=== PATIENT | female | born 1975 | race American Indian/Alaskan Native ===

== ENCOUNTER 2018-03-02 21:15 | Emergency (ER) | payer BC ==
[2018-03-03 03:55] VITALS: BP 135/93
--- NOTE | 2018-03-03 04:02 | XRay Report ---
FINAL REPORT PROCEDURE: XR NECK SOFT TISSUE TECHNIQUE: Soft tissue neck radiographs, 2 views, including AP and lateral. CPT 27006 HISTORY: feels like a lump in her throat after she had eate COMPARISON: No prior studies are available for comparison. FINDINGS: Bone mineralization: Normal. Alignment: Normal. Soft tissues: Epiglottis and hypopharyngeal soft tissues normal. Foreign bodies: None. IMPRESSION: Normal Examination.
--- NOTE | 2018-03-03 04:27 | Emergency Department Report ---
ED ENT HPI - General Chief complaint: Sore Throat Stated complaint: THROAT PAIN Time Seen by Provider: 03/03/18 02:47 Source: patient Mode of arrival: Ambulatory Limitations: No Limitations - History of Present Illness Initial comments: 42-year-old -[place] female comes in reporting that she is having throat pain. Patient reports that she went to [facility] for house and had breakfast her usual order a different location and notice immediately that she started having a feeling of a lump in her throat. Patient reports that she was then able to hold down fluids and water but has not tried to eat anything. Patient has not taken anything for pain. She denies any fever chills no runny nose or nasal congestion no sneezing. Has no past medical history currently takes no medications on a daily basis. She has an allergy to Benadryl and hydrocodone. MD complaint: sore throat -: This afternoon Location: throat Severity scale (0 -10): 0 Quality: other (feels like symptoms in her throat) Worsens with: swallowing - Related Data Allergies Allergy/AdvReac Type Severity Reaction Status Date / Time diphenhydramine HCl Allergy Swelling Unverified 02/21/16 07:09 [From Benadryl] hydrocodone Allergy Itching Unverified 02/21/16 07:08 ED Dental HPI - General Chief complaint: Sore Throat Stated complaint: THROAT PAIN Time Seen by Provider: 03/03/18 02:47 Source: patient Mode of arrival: Ambulatory Limitations: No Limitations - Related Data Allergies Allergy/AdvReac Type Severity Reaction Status Date / Time diphenhydramine HCl Allergy Swelling Unverified 02/21/16 07:09 [From Benadryl] hydrocodone Allergy Itching Unverified 02/21/16 07:08 ED Review of Systems ROS: Stated complaint: THROAT PAIN Other details as noted in HPI ED Past Medical Hx - Past Medical History Previous Medical History?: Yes Hx Hypertension: Yes Hx Arthritis: Yes - Surgical History Past Surgical History?: Yes Additional Surgical History: tubaligation, sinus, fibroid, throid nodule - Social History Smoking Status: Never Smoker Substance Use Type: Alcohol ED Physical Exam - General Limitations: No Limitations General appearance: alert, in no apparent distress - Head Head exam: Present: atraumatic, normocephalic - Eye Eye exam: Present: EOMI - Expanded ENT Exam Expanded Throat exam: Negative: tonsillar erythema, tonsillomegaly, tonsillar exudate - Neck Neck exam: Present: full ROM. Absent: tenderness, lymphadenopathy, thyromegaly - Respiratory Respiratory exam: Present: normal lung sounds bilaterally. Absent: respiratory distress - Cardiovascular Cardiovascular Exam: Present: regular rate, normal rhythm. Absent: systolic murmur, diastolic murmur, rubs, gallop - Neurological Exam Neurological exam: Present: alert, oriented X3 - Psychiatric Psychiatric exam: Present: normal affect, normal mood ED Course Vital Signs 03/02/18 03/03/18 21:23 03:54 Temperature 98.2 F Pulse Rate 100 H 76 Respiratory 18 Rate Blood Pressure 142/108 Blood Pressure 135/93 [Left] O2 Sat by Pulse 100 98 Oximetry ED Medical Decision Making - Radiology Data Soft tissue neck shows normal examination. - Medical Decision Making Patient has been evaluated by this provider fast track. Soft tissue neck x-ray performed shows normal examination Discussed patient that his symptoms persist she needs to follow-up with her primary care provider or ear nose and throat provider. Patient did report that now is starting to feel scratchy which she thinks it may be due to allergies. I discussed the patient she could have irritation from postnasal drip. Patient verbalized understanding Critical care attestation.: If time is entered above; I have spent that time in minutes in the direct care of this critically ill patient, excluding procedure time. ED Disposition Clinical Impression: Irritated throat Disposition: DC-01 TO HOME OR SELFCARE Is pt being admited?: No Does the pt Need Aspirin: No Condition: Stable Instructions: Menthol (By mouth) Additional Instructions: Please try sucking on throat lozenges. If her sore throat persist started having swelling pain or redness to follow up with her primary care provider whether emergency room for further evaluation. Referrals: PRIMARY CARE, [Primary Care Provider] - 3-5 Days [facility] [Provider Group] - 3-5 Days Forms: Work/School Release Form(ED)
== END 2018-03-03 04:41 | disposition home or self-care (01) ==
LOC: ED 21:15
DX: J39.2 Other diseases of pharynx (principal); I10 Essential (primary) hypertension; M19.90 Unspecified osteoarthritis, unspecified site; Z98.51 Tubal ligation status; Z88.1 Allergy status to other antibiotic agents; Z88.4 Allergy status to anesthetic agent
CPT/HCPCS: 70360; 99283

== ENCOUNTER 2018-07-01 08:44 | Outpatient (CLI) | payer BC ==
--- NOTE | 2018-07-01 09:58 | Ultrasound Report ---
RIGHT DIGITAL DIAGNOSTIC MAMMOGRAM and RIGHT BREAST ULTRASOUND: 07/01/18 08:44:00 CLINICAL: Recalled for asymmetry. COMPARISON:05/20/18 screening FINDINGS: Lateralmedial, rolled CC and spot compression CC views were performed. Asymmetry persists on the spot view. Ultrasound of the outer right breast was performed and demonstrated a cluster of benign cysts at 1 o'clock 12 cm from the nipple. It correlates with the mammographic density and measures 5 x 4 x 4 mm. IMPRESSION: Benign clustered cysts at 1 o'clock right breast. BI-RADS CATEGORY: 2 - - Benign RECOMMENDATION: Return to routine mammographic screening. ACR BI-RADS MAMMOGRAPHIC CODES: 0 = Needs additional imaging evaluation; 1 = Negative; 2 = Benign; 3 = Probably benign; 4 = Suspicious; 5 = Malignant; 6 = Known biopsy-proven malignancy COMMENT: 1. Dense breast tissue, i.e., adenosis, fibrocystic changes, etc., may obscure an underlying neoplasm. 2. Approximately 10% of cancers are not detected with mammography. 3. A negative mammography report should not delay biopsy if a clinically suspicious mass is present. COMMENT: Patient follow-up letters are generated via our [employer] application.
== END 2018-07-01 08:45 | disposition home or self-care (01) ==
LOC: MAMMO 08:44
PROVIDERS: ATTEND Family Medicine Adult Medicine
DX: N60.01 Solitary cyst of right breast (principal); I10 Essential (primary) hypertension; M19.90 Unspecified osteoarthritis, unspecified site

== ENCOUNTER 2019-07-21 07:09 | Outpatient (CLI) | payer BC ==
--- NOTE | 2019-07-24 09:05 | Mammography Report ---
DIGITAL SCREENING MAMMOGRAM WITH CAD, 07/21/2019 INDICATION: Routine screening mammography. TECHNIQUE: Digital bilateral 2D mammography was obtained in the craniocaudal and mediolateral obliq ue projections. This examination was interpreted with the benefit of Computer-Aided Detection analysi s. COMPARISON: 05/20/2018 and 07/01/2018 FINDINGS: Breast Density: The right breast is heterogeneously dense, which may obscure small masses in the left breast is smaller and mostly fatty. There is no evidence of dominant mass, suspicious calcifications or architectural distortion in eithe r breast. IMPRESSION: No mammographic evidence of malignancy. Follow up recommendation: Routine yearly BI-RADS Category 2: Benign. A "normal" or negative report should not discourage follow up or biopsy of a clinically significant f inding. A written summary of these findings will be mailed to the patient. The patient will be entered into a mammography reporting system which will generate a reminder letter for the patient's next appointmen t at the appropriate interval. The [employer] recommends yearly mammograms starting at age 40 and continuing as l nimco as a woman is in good health. Breast MRI is recommended for women with an approximate 20-25% or greater lifetime risk of breast cancer, including women with a strong family history of breast or ova lobo cancer or who have been treated for Hodgkin's disease. Signer Name: Jose Reddy MD Signed: 07/24/2019 9:01 AM Workstation Name: [id number]
== END 2019-07-21 07:10 | disposition home or self-care (01) ==
LOC: MAMMO 07:09
PROVIDERS: ATTEND Family Medicine Adult Medicine
DX: Z12.31 Encounter for screening mammogram for malignant neoplasm of breast (principal)
CPT/HCPCS: 77067

== ENCOUNTER 2020-09-13 06:52 | Outpatient (CLI) | payer BC ==
--- NOTE | 2020-09-13 09:18 | Mammography Report ---
DIGITAL SCREENING MAMMOGRAM WITH CAD, 09/13/2020 INDICATION: Routine screening mammography. TECHNIQUE: Digital bilateral 2D mammography was obtained in the craniocaudal and mediolateral obliq ue projections. This examination was interpreted with the benefit of Computer-Aided Detection analysi s. COMPARISON: 07/21/2019, 05/20/2018. FINDINGS: Breast Density: There are scattered areas of fibroglandular density. There is no evidence of dominant mass, suspicious calcifications or architectural distortion in eithe r breast. IMPRESSION: Follow up recommendation: Routine yearly BI-RADS Category 1: Negative. A "normal" or negative report should not discourage follow up or biopsy of a clinically significant f inding. A written summary of these findings will be mailed to the patient. The patient will be entered into a mammography reporting system which will generate a reminder letter for the patient's next appointmen t at the appropriate interval. The [employer] recommends yearly mammograms starting at age 40 and continuing as l nimco as a woman is in good health. Breast MRI is recommended for women with an approximate 20-25% or greater lifetime risk of breast cancer, including women with a strong family history of breast or ova lobo cancer or who have been treated for Hodgkin's disease. Signer Name: Faustino White MD Signed: 09/13/2020 9:13 AM Workstation Name: [id number]
== END 2020-09-13 06:53 | disposition home or self-care (01) ==
LOC: MAMMO 06:52
PROVIDERS: ATTEND Family Medicine Adult Medicine
DX: Z12.31 Encounter for screening mammogram for malignant neoplasm of breast (principal)
CPT/HCPCS: 77067

== ENCOUNTER 2021-09-26 09:02 | Outpatient (CLI) | payer BC | END 2021-09-26 09:03 | disposition home or self-care (01) | LOC: MAMMO 09:02 | PROVIDERS: ATTEND Family Medicine Adult Medicine | DX: Z12.31 Encounter for screening mammogram for malignant neoplasm of breast (principal) | CPT/HCPCS: 77067 ==